=== PATIENT | female | born 1980 | race Caucasian/White ===

== ENCOUNTER 2020-12-24 14:46 | Inpatient (IN) | payer BC, MEDICAID ==
[2020-12-24] MEDS ORDERED: Ondansetron 4 MG/2 ML SDV IVPUSH PRN ×2 (15:54→16:11)
[2020-12-24] MEDS ORDERED: Nalbuphine 10 MG/1 ML Vial IVPUSH PRN (15:54)
[2020-12-24] MEDS ORDERED: Sodium Chloride 0.9% 10 ML Syringe FLUSH PRN (15:54)
[2020-12-24] MEDS ORDERED: Lidocaine 1% 50 ML MDV INJECT SCH (15:54)
[2020-12-24] MEDS ORDERED: Acetaminophen 325 MG Tab PO PRN (15:54)
[2020-12-24] MEDS ORDERED: Oxytocin/Lactated Ringers 10 UNIT/1,000 ML BAG IV SCH ×2 (16:00)
[2020-12-24] MEDS ORDERED: Bupivacaine 0.25% 10 ML SDV ONE (16:00)
[2020-12-24] MEDS ORDERED: fentaNYL 100 MCG/2 ML SDV EPIDUR PRN (16:11)
[2020-12-24] MEDS ORDERED: ePHEDrine 50 MG/ML SDV IVPUSH PRN (16:11)
[2020-12-24] MEDS ORDERED: Bupivacaine/fentaNYL/NS 100 ML Bag EPIDUR SCH (16:15)
[2020-12-24] MEDS: Lactated Ringers 1,000 ML IV SCH ×2 (18:04→20:37)
--- NOTE | 2020-12-24 18:51 | PCM.PREANE ---
Preanesthetic Assessment - Procedure Proposed Procedure: Epidural - Anesthesia/Transfusion/Family Hx Anesthesia History: Prior Anesthesia Without Reaction Family History of Anesthesia Reaction: No Transfusion History: No Prior Transfusion(s) Intubation History: Unknown - Review of Systems General: No Symptoms Pulmonary: No Symptoms Cardiovascular: No Symptoms Gastrointestinal: No Symptoms Neurological: No Symptoms (chronic lower back pain: ), Headache (migraines / vertigo.) Other: Reports: None, Easy Bruising - Physical Assessment NPO Status Date: 12/24/20 NPO Status Time: 11:00 Vital Signs: HR:82 Sat:99% Temp:98.2 B/P:135/92 Resp:22 Height: 1.7 m Weight: 88.451 kg ASA Class: 2 Mental Status: Alert & Oriented x3 Airway Class: Mallampati = 2 Dentition: Reports: Normal Dentition, Caries Thyro-Mental Finger Breadths: 3 Mouth Opening Finger Breadths: 3 ROM/Head Extension: Full Lungs: Clear to Auscultation, Normal Respiratory Effort Cardiovascular: Regular Rate, Regular Rhythm, No Murmurs - Lab Values: Laboratory Last Values WBC 7.63 K/mm3 (3.98-10.04) 12/24/20 16:30 RBC 4.00 M/mm3 (3.98-5.22) 12/24/20 16:30 Hgb 11.5 gm/dl (11.2-15.7) 12/24/20 16:30 Hct 35.4 % (34.1-44.9) 12/24/20 16:30 MCV 88.5 fl (79.4-94.8) 12/24/20 16:30 MCH 28.8 pg (25.6-32.2) 12/24/20 16:30 MCHC 32.5 g/dl (32.2-35.5) 12/24/20 16:30 RDW Std Deviation 39.6 fL (36.4-46.3) 12/24/20 16:30 Plt Count 184 K/mm3 (182-369) 12/24/20 16:30 MPV 11.3 fl (9.4-12.3) 12/24/20 16:30 Neut % (Auto) 70.1 % (34.0-71.1) 12/24/20 16:30 Lymph % (Auto) 18.1 % (19.3-51.7) L 12/24/20 16:30 [place] % (Auto) 9.4 % (4.7-12.5) 12/24/20 16:30 Eos % (Auto) 2.0 (0.7-5.8) 12/24/20 16:30 Baso % (Auto) 0.1 % (0.1-1.2) 12/24/20 16:30 Neut # (Auto) 5.35 K/mm3 (1.56-6.13) 12/24/20 16:30 Lymph # (Auto) 1.38 K/mm3 (1.18-3.74) 12/24/20 16:30 [place] # (Auto) 0.72 K/mm3 (0.24-0.36) H 12/24/20 16:30 Eos # (Auto) 0.15 K/mm3 (0.04-0.36) 12/24/20 16:30 Baso # (Auto) 0.01 K/mm3 (0.01-0.08) 12/24/20 16:30 SARS-CoV-2 RNA (RADHA) Negative (NEGATIVE) 12/24/20 16:20 Above labs reviewed and noted and within acceptable ranges to proceed with epidural. - Allergies Allergies/Adverse Reactions: Allergies Allergy/AdvReac Type Severity Reaction Status Date / Time No Known Allergies Allergy Verified 12/24/20 16:19 - Anesthesia Plan Pre-Op Medication Ordered: None - Acknowledgements Anesthesia Type Planned: Epidural Pt an Appropriate Candidate for the Planned Anesthesia: Yes Alternatives and Risks of Anesthesia Discussed w Pt/Guardian: Yes Pt/Guardian Understands and Agrees with Anesthesia Plan: Yes PreAnesthesia Questionnaire - HOME MEDS Home Medications: Home Meds No122/Iron/Folic Acid [ Multi Tablet] 1 tab PO DAILY 12/24/20 [History] - CURRENT (IN HOUSE) MEDS Current Meds: Current Medications Acetaminophen (Acetaminophen 325 Mg Tab) 650 mg PO Q4H PRN PRN Reason: Pain (Mild 1-3) and fever Ephedrine Sulfate (Ephedrine 50 Mg/Ml Sdv) 5 mg IVPUSH ASDIRECTED PRN PRN Reason: Hypotension Fentanyl (Fentanyl 100 Mcg/2 Ml Sdv) 100 mcg EPIDUR Q3H PRN PRN Reason: Pain Last Admin: 12/24/20 18:31 Dose: 100 mcg Documented by: Fentanyl/Bupivacaine HCl (Bupivacaine/Fentanyl/Ns 100 Ml Bag) 100 ml EPIDUR ASDIRECTED [facility] Last Admin: 12/24/20 18:31 Dose: 100 ml Documented by: Oxytocin/Lactated Ringer's (Pitocin In Lr 10 Units/1,000 Ml) 10 unit in 1,000 mls @ 12 mls/hr IV TITRATE [facility]; Protocol Last Admin: 12/24/20 18:04 Dose: 2 munits/min, 12 mls/hr Documented by: Oxytocin/Lactated Ringer's (Pitocin In Lr 10 Units/1,000 Ml) 10 unit in 1,000 mls @ 100 mls/hr IV .CONTINUOUS [facility] Lactated Ringer's (Ringers, Lactated) 1,000 mls @ 100 mls/hr IV ASDIRECTED [facility] Last Admin: 12/24/20 18:04 Dose: 100 mls/hr Documented by: Lidocaine HCl (Lidocaine 1% 50 Ml Mdv) 50 ml INJECT ONETIME [facility] Miscellaneous Medication (Phenylephrine Hcl In 0.9% Nacl 1 Mg/10 Ml Syringe) 0.1 mg IVPUSH Q10M PRN PRN Reason: Hypotension Nalbuphine HCl (Nalbuphine 10 Mg/1 Ml Vial) 10 mg IVPUSH Q2H PRN PRN Reason: Pain Ondansetron HCl (Ondansetron 4 Mg/2 Ml Sdv) 4 mg IVPUSH Q4H PRN PRN Reason: Nausea/Vomiting Ondansetron HCl (Ondansetron 4 Mg/2 Ml Sdv) 4 mg IVPUSH ONETIME PRN PRN Reason: Nausea/Vomiting Sodium Chloride (Sodium Chloride 0.9% 10 Ml Syringe) 10 ml FLUSH ASDIRECTED PRN PRN Reason: Keep Vein Open
--- NOTE | 2020-12-24 19:43 | PCM.LDHP ---
L&D History of Present Illness - General Date of Service: 12/24/20 Admit Problem/Dx: Patient Status Order with Admit Dx/Problem 12/24/20 15:54 Patient Status [ADT] Routine 12/24/20 16:00 Patient Status [ADT] Routine Admission Diagnosis/Problem Admission Diagnosis/Problem Source of Information: Patient History Limitations: Reports: No Limitations - History of Present Illness Introduction:: Chaya Willett is a GBS - A+ 40 year old female at 39-1 weeks gestation age (LINDA 12/30/20) by 8 week US and LMP who presented to the clinic today with some mild contractions and bloody show. NST was reactive and demo nstrated regular contractions occurring every 3-6 minutes. Cervical exam demonstrated 4/10/-2/soft/anterior. She was sent to L&D for early labor. Pain Score: 5 Present Illness Comments:: Chaya Willett is a GBS - A+ 40 year old female at 39-1 weeks gestation age (LINDA 12/30/20) by 8 week US and LMP who presented to the clinic today with some mild contractions and bloody show and sent to L&D for early labor. Patient has received routine care and denies any complications during her . Due to advanced maternal age with 10 history since last child patient started on aspirin 81 mg daily for preeclampsia prophylaxis during period. She received the Tdap vaccine on 10/18/20; she did not received the flu vaccine. OBGYN History 12/25/2004: of live female at 39 weeks weighing 6 lbs 10 ounces 01/04/2008: of live female at 39 weeks weighing 8 lbs 6 ounces 12/26/2010: of a live female at 39 weeks weighing 7lbs 6 ounces G2: current labs: Blood type: A+ Antibody screen: Negative Rubella status: immune Hepatitis B surface antigen: unknown RPR: negative HIV: negative Gonorrhea: Negative Chlamydia: negative Anatomy US: 11120: Normal anatomy, face partially seen, posterior placenta, no previa. Repeat US at28-4 weeks demonstrated normal growth, FRANKIE, placental position, anatomy One hour glucose tolerance test: 121 First trimester hematocrit/hemoglobin: 12.8 Platelets: 210,000 GBS status: negative - Related Data Allergies/Adverse Reactions: Allergies Allergy/AdvReac Type Severity Reaction Status Date / Time No Known Allergies Allergy Verified 12/24/20 16:19 Home Medications: Home Meds No122/Iron/Folic Acid [ Multi Tablet] 1 tab PO DAILY 12/24/20 [History] H&P Review of Systems - Review of Systems: Review Of Systems: See Below General: Reports: No Symptoms HEENT: Reports: No Symptoms Pulmonary: Reports: No Symptoms Cardiovascular: Reports: No Symptoms Gastrointestinal: Reports: No Symptoms Genitourinary: Reports: No Symptoms Musculoskeletal: Reports: No Symptoms Skin: Reports: No Symptoms Psychiatric: Reports: No Symptoms Neurological: Reports: No Symptoms L&D Exam - Exam Exam: See Below - Vital Signs Weight: 195 lb - OB Specific Contraction Intensity: Mild to Moderate Movement: Active Heart Tones: Present - Espinoza Score Espinoza Score Cervix Position: Midposition Espinoza Score Consistency: Soft Espinoza Score Effacement: 51-70% Espinoza Score Dilation: 3-4 cm Espinoza Score 's Station: -2 Espinoza Score Total: 8 - Exam General: Alert, Oriented HEENT: Conjunctiva Clear, EOMI Lungs: Clear to Auscultation, Normal Respiratory Effort Cardiovascular: Regular Rate, Regular Rhythm GI/Abdominal Exam: Normal Bowel Sounds, Soft, Non-Tender Genitourinary: Normal external exam Extremities: Normal Inspection, No Pedal Edema, Normal Capillary Refill Skin: Warm, Dry, Intact Psychiatric: Alert, Normal Affect, Normal Mood - Patient Data Lab Results Last 24 hrs: Laboratory Results - last 24 hr 12/24/20 12/24/20 Range/Units 16:20 16:30 WBC 7.63 (3.98-10.04) K/mm3 RBC 4.00 (3.98-5.22) M/mm3 Hgb 11.5 (11.2-15.7) gm/dl Hct 35.4 (34.1-44.9) % MCV 88.5 (79.4-94.8) fl MCH 28.8 (25.6-32.2) pg MCHC 32.5 (32.2-35.5) g/dl RDW Std Deviation 39.6 (36.4-46.3) fL Plt Count 184 (182-369) K/mm3 MPV 11.3 (9.4-12.3) fl Neut % (Auto) 70.1 (34.0-71.1) % Lymph % (Auto) 18.1 L (19.3-51.7) % [place] % (Auto) 9.4 (4.7-12.5) % Eos % (Auto) 2.0 (0.7-5.8) Baso % (Auto) 0.1 (0.1-1.2) % Neut # (Auto) 5.35 (1.56-6.13) K/mm3 Lymph # (Auto) 1.38 (1.18-3.74) K/mm3 [place] # (Auto) 0.72 H (0.24-0.36) K/mm3 Eos # (Auto) 0.15 (0.04-0.36) K/mm3 Baso # (Auto) 0.01 (0.01-0.08) K/mm3 SARS-CoV-2 RNA (RADHA) Negative (NEGATIVE) Result Diagrams: 12/24/20 16:30 - Problem List (1) 39 weeks gestation of SNOMED Code(s): 68074248 ICD Code: Z3A.39 - 39 WEEKS GESTATION OF Status: Acute Current Visit: Yes (2) Advanced maternal age (AMA) in SNOMED Code(s): 692334062 ICD Code: [id number] - Status: Acute Current Visit: Yes Problem List Initiated/Reviewed/Updated: Yes Orders Last 24hrs: Active Orders 24 hr Category Date Time Status Patient Status [ADT] Routine ADT 12/24/20 16:00 Active Activity as Tolerated [RC] PFP Care 12/24/20 15:54 Active Communication Order [RC] ASDIRECTED Care 12/24/20 15:54 Active Heart Tones [RC] ASDIRECTED Care 12/24/20 15:55 Active Notify Provider [RC] ASDIRECTED Care 12/24/20 16:11 Active Notify Provider [RC] PFP Care 12/24/20 15:54 Active Notify Provider [RC] PRN Care 12/24/20 15:54 Active Oxygen Therapy [RC] ASDIRECTED Care 12/24/20 16:11 Active Peripheral IV Care [RC] . DIRECTED Care 12/24/20 15:55 Active Pulse Oximetry [RC] ASDIRECTED Care 12/24/20 16:11 Active Urinary Catheter Assessment [RC] ASDIRECTED Care 12/24/20 15:54 Active Vital Signs [RC] PER UNIT ROUTINE Care 12/24/20 15:54 Active Regular Diet [DIET] Diet 12/24/20 Dinner Active RAPID PLASMA REAGIN,RPR [CHEM] Routine Lab 12/24/20 16:30 Received Acetaminophen [TylenoL] Med 12/24/20 15:54 Active 650 mg PO Q4H PRN Bupivacaine/fentaNYL/NS [fentaNYL/Bupivacaine/NS 2 MCG- Med 12/24/20 16:15 Active 0.125% 100 ML] 100 ml EPIDUR ASDIRECTED Lactated Ringers [Ringers, Lactated] 1,000 ml Med 12/24/20 16:00 Active IV ASDIRECTED Lidocaine 1% [Xylocaine 1%] Med 12/24/20 15:54 Active 50 ml INJECT ONETIME Nalbuphine [Nubain] Med 12/24/20 15:54 Active 10 mg IVPUSH Q2H PRN Ondansetron [Zofran] Med 12/24/20 16:11 Active 4 mg IVPUSH ONETIME PRN Ondansetron [Zofran] Med 12/24/20 15:54 Active 4 mg IVPUSH Q4H PRN Oxytocin/Lactated Ringers [Pitocin in LR 10 Units/1,000 Med 12/24/20 16:00 Active ML] 10 unit in 1,000 ml IV .CONTINUOUS Oxytocin/Lactated Ringers [Pitocin in LR 10 Units/1,000 Med 12/24/20 16:00 Active ML] 10 unit in 1,000 ml IV TITRATE Phenylephrine HCl In 0.9% NaCl [Phenylephrine 1 MG/10 Med 12/24/20 16:11 Active ML-NS] 0.1 mg IVPUSH Q10M PRN Sodium Chloride 0.9% [Saline Flush] Med 12/24/20 15:54 Active 10 ml FLUSH ASDIRECTED PRN ePHEDrine [ePHEDrine sulfate] Med 12/24/20 16:11 Active 5 mg IVPUSH ASDIRECTED PRN fentaNYL [Sublimaze] Med 12/24/20 16:11 Active 100 mcg EPIDUR Q3H PRN Electronic Heart Tones Ext w TOCO [WOMSER] Oth 12/24/20 15:54 Ordered Routine Electronic Heart Tones Internal [WOMSER] Per Unit Oth 12/24/20 15:54 Ordered Routine Peripheral IV Insertion Adult [OM.PC] Routine Oth 12/24/20 15:54 Ordered Resuscitation Status Routine Resus Stat 12/24/20 15:54 Ordered Medication Orders Acetaminophen (Acetaminophen 325 Mg Tab) 650 mg PO Q4H PRN PRN Reason: Pain (Mild 1-3) and fever Ephedrine Sulfate (Ephedrine 50 Mg/Ml Sdv) 5 mg IVPUSH ASDIRECTED PRN PRN Reason: Hypotension Fentanyl (Fentanyl 100 Mcg/2 Ml Sdv) 100 mcg EPIDUR Q3H PRN PRN Reason: Pain Last Admin: 12/24/20 18:31 Dose: 100 mcg Documented by: MJ Fentanyl/Bupivacaine HCl (Bupivacaine/Fentanyl/Ns 100 Ml Bag) 100 ml EPIDUR ASDIRECTED [facility] Last Admin: 12/24/20 18:31 Dose: 100 ml Documented by: MJ Oxytocin/Lactated Ringer's (Pitocin In Lr 10 Units/1,000 Ml) 10 unit in 1,000 mls @ 12 mls/hr IV TITRATE [facility]; Protocol Last Admin: 12/24/20 18:04 Dose: 2 munits/min, 12 mls/hr Documented by: MJ Oxytocin/Lactated Ringer's (Pitocin In Lr 10 Units/1,000 Ml) 10 unit in 1,000 mls @ 100 mls/hr IV .CONTINUOUS [facility] Lactated Ringer's (Ringers, Lactated) 1,000 mls @ 100 mls/hr IV ASDIRECTED [facility] Last Admin: 12/24/20 18:04 Dose: 100 mls/hr Documented by: MJ Lidocaine HCl (Lidocaine 1% 50 Ml Mdv) 50 ml INJECT ONETIME [facility] Miscellaneous Medication (Phenylephrine Hcl In 0.9% Nacl 1 Mg/10 Ml Syringe) 0.1 mg IVPUSH Q10M PRN PRN Reason: Hypotension Nalbuphine HCl (Nalbuphine 10 Mg/1 Ml Vial) 10 mg IVPUSH Q2H PRN PRN Reason: Pain Ondansetron HCl (Ondansetron 4 Mg/2 Ml Sdv) 4 mg IVPUSH Q4H PRN PRN Reason: Nausea/Vomiting Ondansetron HCl (Ondansetron 4 Mg/2 Ml Sdv) 4 mg IVPUSH ONETIME PRN PRN Reason: Nausea/Vomiting Sodium Chloride (Sodium Chloride 0.9% 10 Ml Syringe) 10 ml FLUSH ASDIRECTED PRN PRN Reason: Keep Vein Open Assessment/Plan Comment:: Chaya Willett is a GBS - A+ 40 year old female at 39-1 weeks gestation age (LINDA 12/30/20) by 8 week US and LMP who presented to the clinic today with some mild contractions and bloody show. NST was reactive and demons trated regular contractions occurring every 3-6 minutes. Cervical exam demonstrated 4/10/-2/soft/anterior. She was sent to L&D for early labor. 1. Active labor - augmentation of labor with AROM, pitocin as indicated 2. Continuous monitoring 3. GBS - 4. A+ with negative antibody screen 5. Rubella immune 6. Activity as tolerated 7. Small amounts of regular diet 8. Desires epidural 9. Plans to breastfeed 10. Anticipate vaginal delivery unless otherwise indicated 11. Advanced maternal age with 10 history since last child: patient started on aspirin 81 mg daily for preeclampsia prophylaxis during period
--- NOTE | 2020-12-24 22:36 | PCM.DEL ---
L & D Note - General Info Date of Service: 12/24/20 Mother's Due Date: 12/30/20 - Delivery Note Labor: Spontaneous, Augmented by ARM Delivery Outcome: Livebirth Delivery Method: Spontaneous Vaginal Delivery-Single Delivery Mode: Spontaneous Presentation: Left Occiput Anterior (SHWETA) Nuchal Cord: Present, Reduced (Over the shoulder) Anesthesia Type: Epidural Amniotic Fluid Description: Clear Episiotomy Type: None Laceration: 1st Degree (right periurethral; hemodynamically stable ) Placenta: Intact, Spontaneous Cord: 3 Vessels Estimated Blood Loss: 300 Resuscitation Needed: No : Suctioned, Bulb Syringe, Stimulated, Warmed Provider: Ross Moreira Score 1 min: 8 Score 5 min: 9 Second Stage Interventions: Reports: Encouragement Given Delivery Comments (Free Text/Narrative):: Stage I: Chaya Willett is a GBS - A+ 40 year old female at 39-1 weeks gestation age (LINDA 12/30/20) by 8 week US and LMP who presented to the clinic today with some mild contractions and bloody show. NST was reactive and demonstrated regular contractions occurring every 3-6 minutes. Cervical exam demonstrated 4/10/-2/soft/anterior. She was sent to L&D for early labor. AROM was performed; mom and baby tolerated the procedure well. Clear fluid. The patient progressed to complete and pushing. Stage II: of a live male weighing 3660 grams (8 lbs 1.1 ounces) at 2200 in the MAGDIEL position. Nuchal cord present, reduced over the body. Presence of large amount of amniotic fluid with delivery of the infant. APGARs 8/9. The infant was suctioned, stimulated and warmed on the mother's chest. EBL 300 ccs. Stage III: Spontaneous delivery of an intact placenta in the Choudhury presentation; three vessel cord noted. The vaginal mucosa was inspected; noted 1st degree laceration to the right labia minora at the urethral level. Appeared hemodynamically stable and did not require repair. No other noted vaginal lacerations. Mom and baby stable to recovery. - General Info Date of Service: 12/24/20 - Patient Data Vitals - Most Recent: Last Vital Signs Temp 98.2 F 12/24/20 15:15 Pulse 82 12/24/20 15:15 Resp 14 12/24/20 15:15 BP 126/89 12/24/20 15:15 Pulse Ox Weight - Most Recent: 195 lb Lab Results Last 24 Hours: Laboratory Results - last 24 hr 12/24/20 12/24/20 12/24/20 Range/Units 16:20 16:30 16:30 WBC 7.63 (3.98-10.04) K/mm3 RBC 4.00 (3.98-5.22) M/mm3 Hgb 11.5 (11.2-15.7) gm/dl Hct 35.4 (34.1-44.9) % MCV 88.5 (79.4-94.8) fl MCH 28.8 (25.6-32.2) pg MCHC 32.5 (32.2-35.5) g/dl RDW Std Deviation 39.6 (36.4-46.3) fL Plt Count 184 (182-369) K/mm3 MPV 11.3 (9.4-12.3) fl Neut % (Auto) 70.1 (34.0-71.1) % Lymph % (Auto) 18.1 L (19.3-51.7) % [place] % (Auto) 9.4 (4.7-12.5) % Eos % (Auto) 2.0 (0.7-5.8) Baso % (Auto) 0.1 (0.1-1.2) % Neut # (Auto) 5.35 (1.56-6.13) K/mm3 Lymph # (Auto) 1.38 (1.18-3.74) K/mm3 [place] # (Auto) 0.72 H (0.24-0.36) K/mm3 Eos # (Auto) 0.15 (0.04-0.36) K/mm3 Baso # (Auto) 0.01 (0.01-0.08) K/mm3 RPR Non-reactive (NONREACTIVE) SARS-CoV-2 RNA (RADHA) Negative (NEGATIVE) Med Orders - Current: Current Medications Acetaminophen (Acetaminophen 325 Mg Tab) 650 mg PO Q4H PRN PRN Reason: Pain (Mild 1-3) and fever Ephedrine Sulfate (Ephedrine 50 Mg/Ml Sdv) 5 mg IVPUSH ASDIRECTED PRN PRN Reason: Hypotension Fentanyl (Fentanyl 100 Mcg/2 Ml Sdv) 100 mcg EPIDUR Q3H PRN PRN Reason: Pain Last Admin: 12/24/20 18:31 Dose: 100 mcg Documented by: Fentanyl/Bupivacaine HCl (Bupivacaine/Fentanyl/Ns 100 Ml Bag) 100 ml EPIDUR ASDIRECTED [facility] Last Admin: 12/24/20 18:31 Dose: 100 ml Documented by: Oxytocin/Lactated Ringer's (Pitocin In Lr 10 Units/1,000 Ml) 10 unit in 1,000 mls @ 12 mls/hr IV TITRATE [facility]; Protocol Last Titration: 12/24/20 20:32 Dose: 0 munits/min, 0 mls/hr Documented by: Oxytocin/Lactated Ringer's (Pitocin In Lr 10 Units/1,000 Ml) 10 unit in 1,000 mls @ 100 mls/hr IV .CONTINUOUS [facility] Lactated Ringer's (Ringers, Lactated) 1,000 mls @ 100 mls/hr IV ASDIRECTED [facility] Last Admin: 12/24/20 20:37 Dose: 100 mls/hr Documented by: Lidocaine HCl (Lidocaine 1% 50 Ml Mdv) 50 ml INJECT ONETIME [facility] Miscellaneous Medication (Phenylephrine Hcl In 0.9% Nacl 1 Mg/10 Ml Syringe) 0.1 mg IVPUSH Q10M PRN PRN Reason: Hypotension Nalbuphine HCl (Nalbuphine 10 Mg/1 Ml Vial) 10 mg IVPUSH Q2H PRN PRN Reason: Pain Ondansetron HCl (Ondansetron 4 Mg/2 Ml Sdv) 4 mg IVPUSH Q4H PRN PRN Reason: Nausea/Vomiting Ondansetron HCl (Ondansetron 4 Mg/2 Ml Sdv) 4 mg IVPUSH ONETIME PRN PRN Reason: Nausea/Vomiting Sodium Chloride (Sodium Chloride 0.9% 10 Ml Syringe) 10 ml FLUSH ASDIRECTED PRN PRN Reason: Keep Vein Open - Problem List & Annotations (1) 39 weeks gestation of SNOMED Code(s): 74656631 Code(s): Z3A.39 - 39 WEEKS GESTATION OF Status: Acute Current Visit: Yes (2) Advanced maternal age (AMA) in SNOMED Code(s): 329394811 Code(s): FTF0137 - Status: Acute Current Visit: Yes - Problem List Review Problem List Initiated/Reviewed/Updated: Yes - Plan Plan:: of a live male infant weighing 3660 g (8lbs 1.1 ounces) with apgars of 8/9 to a GBS - A+ 40 year old female at 39-1 weeks gestation age (LINDA 12/30/20) by 8 week US and LMP. 1. GBS - 2. A+ with negative antibody screen 3. Rubella immune 4. Advanced maternal age 5. Activity as tolerated 6. Regular diet 7. Plans to breastfeed 8. care per unit routine 9. Anticipate discharge in 24-48 hours pending torch straightener and heater's recommendation
[2020-12-24] MEDS ORDERED: Benzocaine/Menthol 20%-0.5% Spray 56 GM Canister TOP PRN (22:40)
[2020-12-24] MEDS ORDERED: Docusate Sodium 100 MG Cap PO PRN (22:40)
[2020-12-24] MEDS ORDERED: Witch Hazel Medicated Pads 40/Jar TOP PRN (22:40)
[2020-12-24] MEDS ORDERED: Hydrocortisone Acetate 25 MG Supp RECTAL PRN (22:40)
[2020-12-25] MEDS: Ibuprofen 600 MG Tab PO PRN ×3 (00:04→16:11)
--- NOTE | 2020-12-25 07:37 | PCM48HPAN ---
Post Anesthesia Note - EVALUATION WITHIN 48HRS OF ANESTHETIC Vital Signs in Normal Range: Yes Patient Participated in Evaluation: Yes Respiratory Function Stable: Yes Airway Patent: Yes Cardiovascular Function Stable: Yes Hydration Status Stable: Yes Pain Control Satisfactory: Yes Nausea and Vomiting Control Satisfactory: Yes Mental Status Recovered: Yes Vital Signs: Last Vital Signs Temp 36.3 C 12/25/20 03:48 Pulse 74 12/25/20 03:48 Resp 14 12/25/20 03:48 BP 114/71 12/25/20 03:48 Pulse Ox 97 12/25/20 03:48
[2020-12-25] MEDS: Prenatal Multivitamin with Calcium/Folic Acid/Iron Tab PO SCH (08:03)
--- NOTE | 2020-12-25 10:15 | PCM.PNPP ---
- General Info Date of Service: 12/25/20 Functional Status: Reports: Pain Controlled - Review of Systems General: Reports: No Symptoms HEENT: Reports: No Symptoms Pulmonary: Reports: No Symptoms Cardiovascular: Reports: No Symptoms Gastrointestinal: Reports: No Symptoms Genitourinary: Reports: No Symptoms Musculoskeletal: Reports: No Symptoms Skin: Reports: No Symptoms Neurological: Reports: No Symptoms Psychiatric: Reports: No Symptoms - General Info Date of Service: 12/25/20 - Patient Data Vital Signs - Most Recent: Last Vital Signs Temp 36.4 C 12/25/20 08:39 Pulse 81 12/25/20 08:39 Resp 16 12/25/20 08:39 BP 121/76 12/25/20 08:39 Pulse Ox 100 12/25/20 08:39 Weight - Most Recent: 88.451 kg I&O - Last 24 Hours: Intake & Output 12/24/20 12/25/20 12/25/20 22:59 06:59 14:59 Intake Total 4000 Output Total 459 Balance 3541 Lab Results - Last 24 Hours: Laboratory Results - last 24 hr 12/24/20 12/24/20 12/24/20 Range/Units 16:20 16:30 16:30 WBC 7.63 (3.98-10.04) K/mm3 RBC 4.00 (3.98-5.22) M/mm3 Hgb 11.5 (11.2-15.7) gm/dl Hct 35.4 (34.1-44.9) % MCV 88.5 (79.4-94.8) fl MCH 28.8 (25.6-32.2) pg MCHC 32.5 (32.2-35.5) g/dl RDW Std Deviation 39.6 (36.4-46.3) fL Plt Count 184 (182-369) K/mm3 MPV 11.3 (9.4-12.3) fl Neut % (Auto) 70.1 (34.0-71.1) % Lymph % (Auto) 18.1 L (19.3-51.7) % [place] % (Auto) 9.4 (4.7-12.5) % Eos % (Auto) 2.0 (0.7-5.8) Baso % (Auto) 0.1 (0.1-1.2) % Neut # (Auto) 5.35 (1.56-6.13) K/mm3 Lymph # (Auto) 1.38 (1.18-3.74) K/mm3 [place] # (Auto) 0.72 H (0.24-0.36) K/mm3 Eos # (Auto) 0.15 (0.04-0.36) K/mm3 Baso # (Auto) 0.01 (0.01-0.08) K/mm3 RPR Non-reactive (NONREACTIVE) SARS-CoV-2 RNA (RADHA) Negative (NEGATIVE) Med Orders - Current: Current Medications Benzocaine/Menthol (Benzocaine/Menthol 20%-0.5% [place] 56 Gm Canister) 0 gm TOP ASDIRECTED PRN PRN Reason: Perineal Comfort Measure Last Admin: 12/25/20 00:05 Dose: 1 can Documented by: Docusate Sodium (Docusate Sodium 100 Mg Cap) 100 mg PO BID PRN PRN Reason: Constipation Last Admin: 12/25/20 00:05 Dose: 100 mg Documented by: Hydrocortisone Acetate (Hydrocortisone Acetate 25 Mg Supp) 25 mg RECTAL BID PRN PRN Reason: Hemorrhoid pain Ibuprofen (Ibuprofen 600 Mg Tab) 600 mg PO Q4H PRN PRN Reason: Mild pain or fever Last Admin: 12/25/20 08:01 Dose: 600 mg Documented by: Prenat Multivit/[employer]/Iron/Folic Ac ( Multivitamin With Calcium/Folic Acid/Iron Tab) 1 each PO DAILY [facility] Last Admin: 12/25/20 08:03 Dose: 1 each Documented by: Rin Sewell (Rin Sewell Medicated Pads 40/Jar) 1 pad TOP ASDIRECTED PRN PRN Reason: Perineal Comfort Measure Last Admin: 12/25/20 00:05 Dose: 1 tub Documented by: Discontinued Medications Acetaminophen (Acetaminophen 325 Mg Tab) 650 mg PO Q4H PRN PRN Reason: Pain (Mild 1-3) and fever Ephedrine Sulfate (Ephedrine 50 Mg/Ml Sdv) 5 mg IVPUSH ASDIRECTED PRN PRN Reason: Hypotension Fentanyl (Fentanyl 100 Mcg/2 Ml Sdv) 100 mcg EPIDUR Q3H PRN PRN Reason: Pain Last Admin: 12/24/20 18:31 Dose: 100 mcg Documented by: Fentanyl/Bupivacaine HCl (Bupivacaine/Fentanyl/Ns 100 Ml Bag) 100 ml EPIDUR DIRECTED [facility] Last Admin: 12/24/20 18:31 Dose: 100 ml Documented by: Oxytocin/Lactated Ringer's (Pitocin In Lr 10 Units/1,000 Ml) 10 unit in 1,000 mls @ 12 mls/hr IV TITRATE [facility]; Protocol Last Titration: 12/24/20 22:08 Dose: 999 munits/min, 5,994 mls/hr Documented by: Oxytocin/Lactated Ringer's (Pitocin In Lr 10 Units/1,000 Ml) 10 unit in 1,000 mls @ 100 mls/hr IV .CONTINUOUS [facility] Lactated Ringer's (Ringers, Lactated) 1,000 mls @ 100 mls/hr IV ASDIRECTED [facility] Last Admin: 12/24/20 20:37 Dose: 100 mls/hr Documented by: Lidocaine HCl (Lidocaine 1% 50 Ml Mdv) 50 ml INJECT ONETIME [facility] Miscellaneous Medication (Phenylephrine Hcl In 0.9% Nacl 1 Mg/10 Ml Syringe) 0.1 mg IVPUSH Q10M PRN PRN Reason: Hypotension Nalbuphine HCl (Nalbuphine 10 Mg/1 Ml Vial) 10 mg IVPUSH Q2H PRN PRN Reason: Pain Ondansetron HCl (Ondansetron 4 Mg/2 Ml Sdv) 4 mg IVPUSH Q4H PRN PRN Reason: Nausea/Vomiting Ondansetron HCl (Ondansetron 4 Mg/2 Ml Sdv) 4 mg IVPUSH ONETIME PRN PRN Reason: Nausea/Vomiting Sodium Chloride (Sodium Chloride 0.9% 10 Ml Syringe) 10 ml FLUSH ASDIRECTED PRN PRN Reason: Keep Vein Open - Interaction Support Person: Significant Other - Recovery Exam Fundal Tone: Firm Fundal Level: At Umbilicus Fundal Placement: Left Lochia Amount: Small Lochia Color: Rubra/Red Perineum Description: Intact, Minimal Bruising/Swelling Bladder Status: Voiding - Exam General: Alert, Oriented HEENT: Pupils Equal Neck: Supple Lungs: Clear to Auscultation, Normal Respiratory Effort Cardiovascular: Regular Rate, Regular Rhythm GI/Abdominal Exam: Normal Bowel Sounds, Soft, Non-Tender, No Organomegaly, No Distention, No Abnormal Bruit, No Mass, Pelvis Stable Extremities: Normal Inspection, Normal Range of Motion, Non-Tender, No Pedal Edema, Normal Capillary Refill Neurological: No New Focal Deficit - Problem List Review Problem List Initiated/Reviewed/Updated: Yes - Assessment Assessment:: Doing well. PPD1 No complaints. Likely home tomorrow - Plan Plan:: of a live male infant weighing 3660 g (8lbs 1.1 ounces) with apgars of 8/9 to a GBS - A+ 39 year old female at 39-1 weeks gestation age (LINDA [birth year]) by 8 week US and LMP. 1. GBS - 2. A+ with negative antibody screen 3. Rubella immune 4. Advanced maternal age 5. Activity as tolerated 6. Regular diet 7. Plans to breastfeed 8. care per unit routine 9. Anticipate discharge in 24-48 hours pending junior high math teacher's recommendation
[2020-12-26] MEDS: Ibuprofen 600 MG Tab PO PRN (06:30)
--- NOTE | 2020-12-26 08:55 | PCM.DCSUM1 ---
Discharge Summary - Hospital Course Free Text/Narrative:: [facility] Delivery Note Patient Name: JJ PENA Date of : 82 Patient Status: Inpatient Attending Provider: Darinel Norris Date: 12/24/20 22:27 Initialization Date: 12/24/20 22:27 L & D Note - General Info Date of Service: 12/24/20 Mother's Due Date: 12/30/20 - Delivery Note Labor: Spontaneous, Augmented by ARM Delivery Outcome: Livebirth Delivery Method: Spontaneous Vaginal Delivery-Single Infant Delivery Mode: Spontaneous Presentation: Left Occiput Anterior (SHWETA) Nuchal Cord: Present, Reduced (Over the shoulder) Anesthesia Type: Epidural Amniotic Fluid Description: Clear Episiotomy Type: None Laceration: 1st Degree (right periurethral; hemodynamically stable ) Placenta: Intact, Spontaneous Cord: 3 Vessels Estimated Blood Loss: 300 Resuscitation Needed: No Rincon: Suctioned, Bulb Syringe, Stimulated, Warmed Provider: Ross Moreira Score 1 min: 8 Score 5 min: 9 Second Stage Interventions: Reports: Encouragement Given Delivery Comments (Free Text/Narrative):: Stage I: Jj Pena is a GBS - A+ 40 year old female at 39-1 weeks gestation age (LINDA 12/30/20) by 8 week US and LMP who presented to the clinic today with some mild contractions and bloody show. NST was reactive and demonstrated regular contractions occurring every 3-6 minutes. Cervical exam demonstrated 4/10/-2/soft/anterior. She was sent to L&D for early labor. AROM was performed; mom and baby tolerated the procedure well. Clear fluid. The patient progressed to complete and pushing. Stage II: of a live male weighing 3660 grams (8 lbs 1.1 ounces) at 2200 in the MAGDIEL position. Nuchal cord present, reduced over the body. Presence of large amount of amniotic fluid with delivery of the . APGARs 8/9. The was suctioned, stimulated and warmed on the mother's chest. EBL 300 ccs. Stage III: Spontaneous delivery of an intact placenta in the Choudhury presentation; three vessel cord noted. The vaginal mucosa was inspected; noted 1st degree laceration to the right labia minora at the urethral level. Appeared hemodynamically stable and did not require repair. No other noted vaginal lacerations. Mom and baby stable to recovery. - General Info Date of Service: 12/24/20 - Patient Data Vitals - Most Recent: Last Vital Signs Temp 98.2 F 12/24/20 15:15 Pulse 82 12/24/20 15:15 Resp 14 12/24/20 15:15 BP 126/89 12/24/20 15:15 Pulse Ox Weight - Most Recent: 195 lb Lab Results Last 24 Hours: Laboratory Results - last 24 hr 12/24/20 12/24/20 12/24/20 Range/Units 16:20 16:30 16:30 WBC 7.63 (3.98-10.04) K/mm3 RBC 4.00 (3.98-5.22) M/mm3 Hgb 11.5 (11.2-15.7) gm/dl Hct 35.4 (34.1-44.9) % MCV 88.5 (79.4-94.8) fl MCH 28.8 (25.6-32.2) pg MCHC 32.5 (32.2-35.5) g/dl RDW Std Deviation 39.6 (36.4-46.3) fL Plt Count 184 (182-369) K/mm3 MPV 11.3 (9.4-12.3) fl Neut % (Auto) 70.1 (34.0-71.1) % Lymph % (Auto) 18.1 L (19.3-51.7) % [place] % (Auto) 9.4 (4.7-12.5) % Eos % (Auto) 2.0 (0.7-5.8) Baso % (Auto) 0.1 (0.1-1.2) % Neut # (Auto) 5.35 (1.56-6.13) K/mm3 Lymph # (Auto) 1.38 (1.18-3.74) K/mm3 [place] # (Auto) 0.72 H (0.24-0.36) K/mm3 Eos # (Auto) 0.15 (0.04-0.36) K/mm3 Baso # (Auto) 0.01 (0.01-0.08) K/mm3 RPR Non-reactive (NONREACTIVE) SARS-CoV-2 RNA (RADHA) Negative (NEGATIVE) Med Orders - Current: Current Medications Acetaminophen (Acetaminophen 325 Mg Tab) 650 mg PO Q4H PRN PRN Reason: Pain (Mild 1-3) and fever Ephedrine Sulfate (Ephedrine 50 Mg/Ml Sdv) 5 mg IVPUSH ASDIRECTED PRN PRN Reason: Hypotension Fentanyl (Fentanyl 100 Mcg/2 Ml Sdv) 100 mcg EPIDUR Q3H PRN PRN Reason: Pain Last Admin: 12/24/20 18:31 Dose: 100 mcg Documented by: Fentanyl/Bupivacaine HCl (Bupivacaine/Fentanyl/Ns 100 Ml Bag) 100 ml EPIDUR ASDIRECTED HAMILTON Last Admin: 12/24/20 18:31 Dose: 100 ml Documented by: Oxytocin/Lactated Ringer's (Pitocin In Lr 10 Units/1,000 Ml) 10 unit in 1,000 mls @ 12 mls/hr IV TITRATE HAMILTON; Protocol Last Titration: 12/24/20 20:32 Dose: 0 munits/min, 0 mls/hr Documented by: Oxytocin/Lactated Ringer's (Pitocin In Lr 10 Units/1,000 Ml) 10 unit in 1,000 mls @ 100 mls/hr IV .CONTINUOUS HAMILTON Lactated Ringer's (Ringers, Lactated) 1,000 mls @ 100 mls/hr IV ASDIRECTED HAMILTON Last Admin: 12/24/20 20:37 Dose: 100 mls/hr Documented by: Lidocaine HCl (Lidocaine 1% 50 Ml Mdv) 50 ml INJECT ONETIME HAMILTON Miscellaneous Medication (Phenylephrine Hcl In 0.9% Nacl 1 Mg/10 Ml Syringe) 0.1 mg IVPUSH Q10M PRN PRN Reason: Hypotension Nalbuphine HCl (Nalbuphine 10 Mg/1 Ml Vial) 10 mg IVPUSH Q2H PRN PRN Reason: Pain Ondansetron HCl (Ondansetron 4 Mg/2 Ml Sdv) 4 mg IVPUSH Q4H PRN PRN Reason: Nausea/Vomiting Ondansetron HCl (Ondansetron 4 Mg/2 Ml Sdv) 4 mg IVPUSH ONETIME PRN PRN Reason: Nausea/Vomiting Sodium Chloride (Sodium Chloride 0.9% 10 Ml Syringe) 10 ml FLUSH ASDIRECTED PRN PRN Reason: Keep Vein Open - Problem List & Annotations (1) 39 weeks gestation of SNOMED Code(s): 61336090 Code(s): Z3A.39 - 39 WEEKS GESTATION OF Status: Acute Current Visit: Yes (2) Advanced maternal age (AMA) in SNOMED Code(s): 086790448 Code(s): MER3129 - Status: Acute Current Visit: Yes - Problem List Review Problem List Initiated/Reviewed/Updated: Yes - Plan Plan:: of a live male infant weighing 3660 g (8lbs 1.1 ounces) with apgars of 8/9 to a GBS - A+ 40 year old female at 39-1 weeks gestation age (LINDA 12/30/20) by 8 week US and LMP. 1. GBS - 2. A+ with negative antibody screen 3. Rubella immune 4. Advanced maternal age 5. Activity as tolerated 6. Regular diet 7. Plans to breastfeed 8. care per unit routine 9. Anticipate discharge in 24-48 hours pending cell cleaner's recommendation HPI Initial Comments: [facility] Delivery Note Patient Name: JJ PENA Date of : 82 Patient Status: Inpatient Attending Provider: Darinel Norris Date: 12/24/20 22:27 Initialization Date: 12/24/20 22:27 L & D Note - General Info Date of Service: 12/24/20 Mother's Due Date: 12/30/20 - Delivery Note Labor: Spontaneous, Augmented by ARM Delivery Outcome: Livebirth Infant Delivery Method: Spontaneous Vaginal Delivery-Single Delivery Mode: Spontaneous Presentation: Left Occiput Anterior (SHWETA) Nuchal Cord: Present, Reduced (Over the shoulder) Anesthesia Type: Epidural Amniotic Fluid Description: Clear Episiotomy Type: None Laceration: 1st Degree (right periurethral; hemodynamically stable ) Placenta: Intact, Spontaneous Cord: 3 Vessels Estimated Blood Loss: 300 Resuscitation Needed: No Rincon: Suctioned, Bulb Syringe, Stimulated, Warmed Provider: Ross Moreira Score 1 min: 8 Score 5 min: 9 Second Stage Interventions: Reports: Encouragement Given Delivery Comments (Free Text/Narrative):: Stage I: Jj Pena is a GBS - A+ 40 year old female at 39-1 weeks gestation age (LINDA 12/30/20) by 8 week US and LMP who presented to the clinic today with some mild contractions and bloody show. NST was reactive and demonstrated regular contractions occurring every 3-6 minutes. Cervical exam demonstrated 4/10/-2/soft/anterior. She was sent to L&D for early labor. AROM was performed; mom and baby tolerated the procedure well. Clear fluid. The patient progressed to complete and pushing. Stage II: of a live male infant weighing 3660 grams (8 lbs 1.1 ounces) at 2200 in the MAGDIEL position. Nuchal cord present, reduced over the body. Presence of large amount of amniotic fluid with delivery of the . APGARs 8/9. The was suctioned, stimulated and warmed on the mother's chest. EBL 300 ccs. Stage III: Spontaneous delivery of an intact placenta in the Choudhury presentation; three vessel cord noted. The vaginal mucosa was inspected; noted 1st degree laceration to the right labia minora at the urethral level. Appeared hemodynamically stable and did not require repair. No other noted vaginal lacerations. Mom and baby stable to recovery. - General Info Date of Service: 12/24/20 - Patient Data Vitals - Most Recent: Last Vital Signs Temp 98.2 F 12/24/20 15:15 Pulse 82 12/24/20 15:15 Resp 14 12/24/20 15:15 BP 126/89 12/24/20 15:15 Pulse Ox Weight - Most Recent: 195 lb Lab Results Last 24 Hours: Laboratory Results - last 24 hr 12/24/20 12/24/20 12/24/20 Range/Units 16:20 16:30 16:30 WBC 7.63 (3.98-10.04) K/mm3 RBC 4.00 (3.98-5.22) M/mm3 Hgb 11.5 (11.2-15.7) gm/dl Hct 35.4 (34.1-44.9) % MCV 88.5 (79.4-94.8) fl MCH 28.8 (25.6-32.2) pg MCHC 32.5 (32.2-35.5) g/dl RDW Std Deviation 39.6 (36.4-46.3) fL Plt Count 184 (182-369) K/mm3 MPV 11.3 (9.4-12.3) fl Neut % (Auto) 70.1 (34.0-71.1) % Lymph % (Auto) 18.1 L (19.3-51.7) % [place] % (Auto) 9.4 (4.7-12.5) % Eos % (Auto) 2.0 (0.7-5.8) Baso % (Auto) 0.1 (0.1-1.2) % Neut # (Auto) 5.35 (1.56-6.13) K/mm3 Lymph # (Auto) 1.38 (1.18-3.74) K/mm3 [place] # (Auto) 0.72 H (0.24-0.36) K/mm3 Eos # (Auto) 0.15 (0.04-0.36) K/mm3 Baso # (Auto) 0.01 (0.01-0.08) K/mm3 RPR Non-reactive (NONREACTIVE) SARS-CoV-2 RNA (RADHA) Negative (NEGATIVE) Med Orders - Current: Current Medications Acetaminophen (Acetaminophen 325 Mg Tab) 650 mg PO Q4H PRN PRN Reason: Pain (Mild 1-3) and fever Ephedrine Sulfate (Ephedrine 50 Mg/Ml Sdv) 5 mg IVPUSH ASDIRECTED PRN PRN Reason: Hypotension Fentanyl (Fentanyl 100 Mcg/2 Ml Sdv) 100 mcg EPIDUR Q3H PRN PRN Reason: Pain Last Admin: 12/24/20 18:31 Dose: 100 mcg Documented by: Fentanyl/Bupivacaine HCl (Bupivacaine/Fentanyl/Ns 100 Ml Bag) 100 ml EPIDUR ASDIRECTED HAMILTON Last Admin: 12/24/20 18:31 Dose: 100 ml Documented by: Oxytocin/Lactated Ringer's (Pitocin In Lr 10 Units/1,000 Ml) 10 unit in 1,000 mls @ 12 mls/hr IV TITRATE HAMILTON; Protocol Last Titration: 12/24/20 20:32 Dose: 0 munits/min, 0 mls/hr Documented by: Oxytocin/Lactated Ringer's (Pitocin In Lr 10 Units/1,000 Ml) 10 unit in 1,000 mls @ 100 mls/hr IV .CONTINUOUS HAMILTON Lactated Ringer's (Ringers, Lactated) 1,000 mls @ 100 mls/hr IV ASDIRECTED HAMILTON Last Admin: 12/24/20 20:37 Dose: 100 mls/hr Documented by: Lidocaine HCl (Lidocaine 1% 50 Ml Mdv) 50 ml INJECT ONETIME HAMILTON Miscellaneous Medication (Phenylephrine Hcl In 0.9% Nacl 1 Mg/10 Ml Syringe) 0.1 mg IVPUSH Q10M PRN PRN Reason: Hypotension Nalbuphine HCl (Nalbuphine 10 Mg/1 Ml Vial) 10 mg IVPUSH Q2H PRN PRN Reason: Pain Ondansetron HCl (Ondansetron 4 Mg/2 Ml Sdv) 4 mg IVPUSH Q4H PRN PRN Reason: Nausea/Vomiting Ondansetron HCl (Ondansetron 4 Mg/2 Ml Sdv) 4 mg IVPUSH ONETIME PRN PRN Reason: Nausea/Vomiting Sodium Chloride (Sodium Chloride 0.9% 10 Ml Syringe) 10 ml FLUSH ASDIRECTED PRN PRN Reason: Keep Vein Open - Problem List & Annotations (1) 39 weeks gestation of SNOMED Code(s): 03481398 Code(s): Z3A.39 - 39 WEEKS GESTATION OF Status: Acute Current Visit: Yes (2) Advanced maternal age (AMA) in SNOMED Code(s): 350827879 Code(s): IUK3793 - Status: Acute Current Visit: Yes - Problem List Review Problem List Initiated/Reviewed/Updated: Yes - Plan Plan:: of a live male infant weighing 3660 g (8lbs 1.1 ounces) with apgars of 8/9 to a GBS - A+ 40 year old female at 39-1 weeks gestation age (LINDA 12/30/20) by 8 week US and LMP. 1. GBS - 2. A+ with negative antibody screen 3. Rubella immune 4. Advanced maternal age 5. Activity as tolerated 6. Regular diet 7. Plans to breastfeed 8. care per unit routine 9. Anticipate discharge in 24-48 hours pending cell cleaner's recommendation Brief History: [facility] . L/D Delivery Note. Patient Name: JJ PENA Record Number: [id number]. Date of : 82Patient Status: Inpatient. Attending Provider: Darinel Norris FAccount Number: [id number]. Date: 12/24/20 22:27Initialization Date: 12/24/20 22:27. L & D Note. - General Info. Date of Service: 12/24/20. Mother's Due Date: 12/30/20. - Delivery Note. Labor: Spontaneous, Augmented by ARM. Delivery Outcome: Livebirth. Infant Delivery Method: Spontaneous Vaginal Delivery- Single. Delivery Mode: Spontaneous. Presentation: Left Occiput Anterior (SHWETA). Nuchal Cord: Present, Reduced (Over the shoulder). Anesthesia Type: Epidural. Amniotic Fluid Description: Clear. Episiotomy Type: None. Laceration: 1st Degree (right periurethral; hemodynamically stable ). Placenta: Intact, Spontaneous. Cord: 3 Vessels. Estimated Blood Loss: 300. Resuscitation Needed: No. Rincon: Suctioned, Bulb Syringe, Stimulated, Warmed. Provider: Ross Moreira. Score 1 min: 8. Score 5 min: 9. Second Stage Interventions: Reports: Encouragement Given. Delivery Comments (Free Text/Narrative):: Stage I: Jj Pena is a GBS - A+ 40 year old female at 39-1 weeks gestation age (LINDA 12/30/20) by 8 week US and LMP who presented to the clinic today with some mild contractions and bloody show. NST was reactive and demonstrated regular contractions occurring every 3-6 minutes. Cervical exam demonstrated 4/10/-2/soft/anterior. She was sent to L&D for early labor. AROM was performed; mom and baby tolerated the procedure well. Clear fluid. The patient progressed to complete and pushing. Stage II: of a live male weighing 3660 grams (8 lbs 1.1 ounces) at 2200 in the MAGDIEL position. Nuchal cord present, reduced over the body. Presence of large amount of amniotic fluid with delivery of the infant. APGARs 8/9. The was suctioned, stimulated and warmed on the mother's chest. EBL 300 ccs. Stage III: Spontaneous delivery of an intact placenta in the Choudhury presentation; three vessel cord noted. The vaginal mucosa was inspected; noted 1st degree laceration to the right labia minora at the urethral level. Appeared hemodynamically stable and did not require repair. No other noted vaginal lacerations. Mom and baby stable to recovery. - General Info. Date of Service: 12/24/20. - Patient Data. Vitals - Most Recent: Last Vital Signs. Temp 98.2 F 12/24/20 15:15. Pulse 82 12/24/20 15:15. Resp 14 12/24/20 15:15. BP 126/89 12/24/20 15:15. Pulse Ox. Weight - Most Recent: 195 lb. Lab Results Last 24 Hours: Laboratory Results - last 24 hr. 12/24/2102Range/Units. 16:3016:30. WBC 7.63 (3.98-10.04) K/mm3. RBC 4.00 (3.98-5.22) M/mm3. Hgb 11.5 (11.2- 15.7) gm/dl. Hct 35.4 (34.1-44.9) %. MCV 88.5 (79.4-94.8) fl. MCH 28.8 (25.6-32.2) pg. MCHC 32.5 (32.2-35.5) g/dl. RDW Std Deviation 39.6 (36.4- 46.3) fL. Plt Count 184 (182-369) K/mm3. MPV 11.3 (9.4-12.3) fl. Neut % (Auto) 70.1 (34.0-71.1) %. Lymph % (Auto) 18.1 L (19.3-51.7) %. [place] % (Auto) 9.4 (4.7-12.5) %. Eos % (Auto) 2.0 (0.7-5.8). Baso % (Auto) 0.1 (0.1- 1.2) %. Neut # (Auto) 5.35 (1.56-6.13) K/mm3. Lymph # (Auto) 1.38 (1.18- 3.74) K/mm3. [place] # (Auto) 0.72 H (0.24-0.36) K/mm3. Eos # (Auto) 0.15 (0.04-0.36) K/mm3. Baso # (Auto) 0.01 (0.01-0.08) K/mm3. RPR Non-reactive (NONREACTIVE). SARS-CoV-2 RNA (RADHA) Negative (NEGATIVE). Med Orders - Current: Current Medications. Acetaminophen (Acetaminophen 325 Mg Tab) 650 mg PO Q4H PRN. PRN Reason: Pain (Mild 1-3) and fever. Ephedrine Sulfate (Ephedrine 50 Mg/Ml Sdv) 5 mg IVPUSH ASDIRECTED PRN. PRN Reason: Hypotension. Fentanyl (Fentanyl 100 Mcg/2 Ml Sdv) 100 mcg EPIDUR Q3H PRN. PRN Reason: Pain. Last Admin: 12/24/20 18:31 Dose: 100 mcg. Documented by: Fentanyl/Bupivacaine HCl (Bupivacaine/Fentanyl/Ns 100 Ml Bag) 100 ml EPIDUR ASDIRECTED HAMILTON. Last Admin: 12/24/20 18:31 Dose: 100 ml. Documented by: Oxytocin/Lactated Ringer's (Pitocin In Lr 10 Units/1,000 Ml) 10 unit in 1,000 mls @ 12 mls/hr IV TITRATE HAMILTON; Protocol. Last Titration: 12/24/20 20:32 Dose: 0 munits/min, 0 mls/hr. Documented by: Oxytocin/Lactated Ringer's (Pitocin In Lr 10 Units/1,000 Ml) 10 unit in 1,000 mls @ 100 mls/hr IV .CONTINUOUS HAMILTON. Lactated Ringer's (Ringers, Lactated) 1,000 mls @ 100 mls/hr IV ASDIRECTED HAMILTON. Last Admin: 12/24/20 20:37 Dose: 100 mls/hr. Documented by: Lidocaine HCl (Lidocaine 1% 50 Ml Mdv) 50 ml INJECT ONETIME HAMILTON. Miscellaneous Medication (Phenylephrine Hcl In 0.9% Nacl 1 Mg/10 Ml Syringe) 0.1 mg IVPUSH Q10M PRN. PRN Reason: Hypotension. Nalbuphine HCl (Nalbuphine 10 Mg/1 Ml Vial) 10 mg IVPUSH Q2H PRN. PRN Reason: Pain. Ondansetron HCl (Ondansetron 4 Mg/2 Ml Sdv) 4 mg IVPUSH Q4H PRN. PRN Reason: Nausea/Vomiting. Ondansetron HCl (Ondansetron 4 Mg/2 Ml Sdv) 4 mg IVPUSH ONETIME PRN. PRN Reason: Nausea/Vomiting. Sodium Chloride (Sodium Chloride 0.9% 10 Ml Syringe) 10 ml FLUSH ASDIRECTED PRN. PRN Reason: Keep Vein Open. - Problem List & Annotations. (1) 39 weeks gestation of . SNOMED Code(s): 93799144. Code(s): Z3A.39 - 39 WEEKS GESTATION OF Status: Acute Current Visit: Yes. (2) Advanced maternal age (AMA) in . SNOMED Code(s): 796035912. Code(s): MZF6430 - Status: Acute Current Visit: Yes. - Problem List Review. Problem List Initiated/Reviewed/Updated: Yes. - Plan. Plan:: of a live male weighing 3660 g (8lbs 1.1 ounces) with apgars of 8/9 to a GBS - A+ 40 year old female at 39-1 weeks gestation age (LINDA 12/30/20) by 8 week US and LMP. 1. GBS -. 2. A+ with negative antibody screen. 3. Rubella immune. 4. Advanced maternal age. 5. Activity as tolerated. 6. Regular diet. 7. Plans to breastfe ed. 8. care per unit routine. 9. Anticipate discharge in 24-48 hours pending cell cleaner's recommendation Diagnosis: Stroke: No - Discharge Data Discharge Date: 12/26/20 Discharge Disposition: Home, Self-Care 01 Condition: Good - Referral to Home Health Primary Care Physician: Thaddeus Coronado MD - Discharge Diagnosis/Problem(s) (1) First degree perineal laceration during delivery SNOMED Code(s): 214005321 ICD Code: O70.0 - FIRST DEGREE PERINEAL LACERATION DURING DELIVERY Status: Acute Current Visit: Yes (2) 39 weeks gestation of SNOMED Code(s): 83921172 ICD Code: Z3A.39 - 39 WEEKS GESTATION OF Status: Acute Current Visit: Yes (3) Advanced maternal age (AMA) in SNOMED Code(s): 872005179 ICD Code: TUN2610 - Status: Acute Current Visit: Yes - Patient Summary/Data Complications: None Consults: None Hospital Course: Uneventful - Patient Instructions Diet: Usual Diet as Tolerated Driving: Do Not Drive (X2 days) Showering/Bathing: May Shower Notify Provider of: Fever, Increased Pain, Swelling and Redness, Drainage, Nausea and/or Vomiting - Discharge Plan *PRESCRIPTION DRUG MONITORING PROGRAM REVIEWED*: Not Applicable *COPY OF PRESCRIPTION DRUG MONITORING REPORT IN PATIENT GEOVANNI: Not Applicable Home Medications: Home Meds No122/Iron/Folic Acid [ Multi Tablet] 1 tab PO DAILY 12/24/20 [History] Docusate Sodium [Colace] 100 mg PO BID PRN cap 12/26/20 [Rx] Ibuprofen [Motrin] 600 mg PO Q6H PRN tablet 12/26/20 [Rx] witroyce Gilbert [Tucks] 1 pad TOP ASDIRECTED PRN pad 12/26/20 [Rx] Referrals: Thaddeus Coronado MD [Primary Care Provider] - (Call to make an appointment to see Dr. Coronado in 2 weeks) - Discharge Summary/Plan Comment DC Time >30 min.: No - Patient Data Vitals - Most Recent: Last Vital Signs Temp 98.6 F 12/26/20 08:12 Pulse 77 12/26/20 08:12 Resp 16 12/26/20 08:12 BP 113/84 12/26/20 08:12 Pulse Ox 97 12/26/20 08:12 Weight - Most Recent: 195 lb I&O - Last 24 hours: Intake & Output 12/25/20 12/26/20 12/26/20 22:59 06:59 14:59 Intake Total 820 Balance 820 Med Orders - Current: Current Medications Benzocaine/Menthol (Benzocaine/Menthol 20%-0.5% [place] 56 Gm Canister) 0 gm TOP ASDIRECTED PRN PRN Reason: Perineal Comfort Measure Last Admin: 12/25/20 00:05 Dose: 1 can Documented by: Docusate Sodium (Docusate Sodium 100 Mg Cap) 100 mg PO BID PRN PRN Reason: Constipation Last Admin: 12/25/20 00:05 Dose: 100 mg Documented by: Hydrocortisone Acetate (Hydrocortisone Acetate 25 Mg Supp) 25 mg RECTAL BID PRN PRN Reason: Hemorrhoid pain Ibuprofen (Ibuprofen 600 Mg Tab) 600 mg PO Q4H PRN PRN Reason: Mild pain or fever Last Admin: 12/26/20 06:30 Dose: 600 mg Documented by: Prenat Multivit/Todd/Iron/Folic Ac ( Multivitamin With Calcium/Folic Acid/Iron Tab) 1 each PO DAILY HAMILTON Last Admin: 12/25/20 08:03 Dose: 1 each Documented by: Rin Sewell (Rin Sewell Medicated Pads 40/Jar) 1 pad TOP ASDIRECTED PRN PRN Reason: Perineal Comfort Measure Last Admin: 12/25/20 00:05 Dose: 1 tub Documented by: Discontinued Medications Acetaminophen (Acetaminophen 325 Mg Tab) 650 mg PO Q4H PRN PRN Reason: Pain (Mild 1-3) and fever Bupivacaine HCl (Bupivacaine 0.25% 10 Ml Sdv) 10 ml .ROUTE .STK-MED ONE Stop: 12/24/20 16:01 Ephedrine Sulfate (Ephedrine 50 Mg/Ml Sdv) 5 mg IVPUSH ASDIRECTED PRN PRN Reason: Hypotension Fentanyl (Fentanyl 100 Mcg/2 Ml Sdv) 100 mcg EPIDUR Q3H PRN PRN Reason: Pain Last Admin: 12/24/20 18:31 Dose: 100 mcg Documented by: Fentanyl/Bupivacaine HCl (Bupivacaine/Fentanyl/Ns 100 Ml Bag) 100 ml EPIDUR ASDIRECTED HAMILTON Last Admin: 12/24/20 18:31 Dose: 100 ml Documented by: Oxytocin/Lactated Ringer's (Pitocin In Lr 10 Units/1,000 Ml) 10 unit in 1,000 mls @ 12 mls/hr IV TITRATE HAMILTON; Protocol Last Titration: 12/24/20 22:08 Dose: 999 munits/min, 5,994 mls/hr Documented by: Oxytocin/Lactated Ringer's (Pitocin In Lr 10 Units/1,000 Ml) 10 unit in 1,000 mls @ 100 mls/hr IV .CONTINUOUS HAMILTON Lactated Ringer's (Ringers, Lactated) 1,000 mls @ 100 mls/hr IV ASDIRECTED HAMILTON Last Admin: 12/24/20 20:37 Dose: 100 mls/hr Documented by: Lidocaine HCl (Lidocaine 1% 50 Ml Mdv) 50 ml INJECT ONETIME HAMILTON Miscellaneous Medication (Phenylephrine Hcl In 0.9% Nacl 1 Mg/10 Ml Syringe) 0.1 mg IVPUSH Q10M PRN PRN Reason: Hypotension Nalbuphine HCl (Nalbuphine 10 Mg/1 Ml Vial) 10 mg IVPUSH Q2H PRN PRN Reason: Pain Ondansetron HCl (Ondansetron 4 Mg/2 Ml Sdv) 4 mg IVPUSH Q4H PRN PRN Reason: Nausea/Vomiting Ondansetron HCl (Ondansetron 4 Mg/2 Ml Sdv) 4 mg IVPUSH ONETIME PRN PRN Reason: Nausea/Vomiting Sodium Chloride (Sodium Chloride 0.9% 10 Ml Syringe) 10 ml FLUSH ASDIRECTED PRN PRN Reason: Keep Vein Open
[2020-12-26] MEDS: Prenatal Multivitamin with Calcium/Folic Acid/Iron Tab PO SCH (09:59)
== END 2020-12-26 10:05 | disposition home or self-care (01) | DRG 560 ==
LOC: JD.OBCHECK 14:46 → JD.OB 15:00 → JD.OBCHECK 16:00 → OBSVTOIN 22:08 → JD.OB 22:08
PROVIDERS: ADMIT Obstetrics & Gynecology; ATTEND Obstetrics & Gynecology
PROC: 10E0XZZ Delivery of Products of Conception, External Approach (ICD-10-PCS; principal; 2020-12-24)
PROC: 10907ZC Drainage of Amniotic Fluid, Therapeutic from Products of Conception, Via Natural or Artificial Opening (ICD-10-PCS; 2020-12-24)
PROC: 3E0R3BZ Introduction of Anesthetic Agent into Spinal Canal, Percutaneous Approach (ICD-10-PCS; 2020-12-24)
PROC: 00HU33Z Insertion of Infusion Device into Spinal Canal, Percutaneous Approach (ICD-10-PCS; 2020-12-24)
DX: O69.81X0 Labor and delivery complicated by cord around neck, without compression, not applicable or unspecified (principal); O70.0 First degree perineal laceration during delivery; Z3A.39 39 weeks gestation of pregnancy; Z37.0 Single live birth; Z20.822 Contact with and (suspected) exposure to COVID-19
CPT/HCPCS: 01967; 36415; 59025; 59409; 85025; 86592; A9270-GY; J2590; J3010; J3490; J7120; U0002